=== PATIENT | female | born 1965 | race Caucasian/White ===

== ENCOUNTER 2020-11-11 09:28 | Day surgery (SDC) | payer SELFPAY ==
[2020-11-11] MEDS ORDERED: Ringers Lactate 1,000 ML IV ONE (09:57)
[2020-11-11 10:00] VITALS: BP 119/74; TEMP 97.4; O2SAT 97
[2020-11-11] MEDS ORDERED: propofoL 200 MG/20 ML VIAL IV ONE (10:30)
[2020-11-11] MEDS ORDERED: FENTANYL CITR 100 MCG/2 ML ONE (10:30)
[2020-11-11] MEDS ORDERED: dexAMETHasone 10 MG/ML VIAL ONE (10:30)
[2020-11-11] MEDS ORDERED: MIDAZOLAM HCL 2 MG/2 ML INJ ONE (10:30)
[2020-11-11] MEDS ORDERED: LIDOCAINE 1% MPF 5 ML VIAL ONE (10:30)
[2020-11-11] MEDS ORDERED: KETOROLAC 30 MG/ML INJ ONE (10:30)
[2020-11-11] MEDS ORDERED: ONDANSETRON 4 MG/2 ML VIAL ONE (10:31)
[2020-11-11] MEDS ORDERED: SILVER NITRATE 1 APPL TOP ONE (10:42)
[2020-11-11] MEDS ORDERED: LIDOCAINE 1% W/EPI 1:100,000 MDV 20 ML VIAL ONE (10:42)
--- NOTE | 2020-11-11 21:49 | OP ---
Date of Procedure: 11/11/2020 Surgeon: Rosy Steward MD Preoperative Diagnosis: Postmenopausal bleeding and endometrial polyp. Postoperative Diagnosis: Postmenopausal bleeding and endometrial polyp. Procedures Performed: Operative hysteroscopy, polypectomy, and dilatation and curettage. Anesthesia: MAC plus paracervical block. Specimens: Endometrial polyp and very scant endometrial curettings. Complications: No complications. Drains: No drains. Findings: Uterine cavity anteflexed, left lateral wall endometrial polyp pedunculated. Endometrial lining appeared to be unremarkable and thin. Polyp was excised completely at its base and retrieved intact. Indication: The patient is a 55-year-old who presented with postmenopausal bleeding. Transvaginal u ltrasound showed thickened endometrium and possibly a polyp. The patient was unable to tolerate an o ffice procedure. So she was brought here. Procedure In Detail: After she was consented and taken back to OR, placed in supine fashion on the o perating table. After MAC was given, she was placed in a dorsal lithotomy position. Vulva and vagin a were prepped and speculum was placed to expose the cervix. Anterior lip was injected with 1% lidoc tracie mixed with 1:100,000 epinephrine, 7 cc here and at 4 and 8 o'clock positions of the cervicovagin al junction another 7 cc each. Allis clamp was used to hold the anterior lip. Then, diagnostic Slim Line hysteroscope was introduced through the cervical canal into the uterine cavity. Polyp was visua lized. Scope was pulled out. Cervix was dilated to 18-Turkmen. Then, the diagnostic scope was diaz ed to an operative scope and through the operative channel scissors were placed. This was then reint roduced into the uterine cavity under direct visualization and was able to cut the polyp at its base and it was retrieved with the polyp forceps. After this was handed off for permanent pathology, #1 curette was used to curette the lining and the sample was handed off for permanent pathology. All the instruments were removed. Instrument, needle , and sponge counts were reported correct. She will have a followup in one week with me in the offic eTangela MERINO/ERI Voice ID: [id number] Report ID: [id number]
== END 2020-11-11 12:55 | disposition home or self-care (01) ==
LOC: OR 09:28
PROVIDERS: ATTEND Obstetrics & Gynecology
PROC: 0UDB8ZX Extraction of Endometrium, Via Natural or Artificial Opening Endoscopic, Diagnostic (ICD-10-PCS; 2020-11-11)
PROC: 0UB98ZX Excision of Uterus, Via Natural or Artificial Opening Endoscopic, Diagnostic (ICD-10-PCS; principal; 2020-11-11 11:15)
DX: N95.0 Postmenopausal bleeding (principal); N84.0 Polyp of corpus uteri; F32.0 Major depressive disorder, single episode, mild
CPT/HCPCS: 88305; J1100; J2250; J2405; J2704; J3010; J7120